=== PATIENT | male | born 1950 | race Caucasian/White ===

== ENCOUNTER 2017-08-15 11:52 | Emergency (ER) | payer MEDICARE, OTHER ==
[2017-08-15 12:43] LABS: CHLORIDE,CL 102 mmol/L (98-107); SODIUM,NA 135 mmol/L (136-145)
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
[2017-08-15] MEDS ORDERED: Iopamidol 612 MG/ML 100 ML Bottle IVPUSH ONE (13:02)
[2017-08-15] MEDS ORDERED: Sodium Chloride 0.9% 100 ML IV SCH (13:15)
[2017-08-15] MEDS ORDERED: Take Home: Acetaminophen/HYDROcodone 325-5 MG, 5 Tab Pack PO ONE (14:31)
== END 2017-08-15 14:00 | disposition home or self-care (01) ==
LOC: VM.ED 11:52
DX: S30.1XXA Contusion of abdominal wall, initial encounter (principal); E78.00 Pure hypercholesterolemia, unspecified; I10 Essential (primary) hypertension; F17.210 Nicotine dependence, cigarettes, uncomplicated; Z79.899 Other long term (current) drug therapy; Z79.82 Long term (current) use of aspirin; W22.8XXA Striking against or struck by other objects, initial encounter
CPT/HCPCS: 36415; 74177; 80048; 81001; 85025; 99284; A9270; J7050; Q9967; 99283-GF